=== PATIENT | female | born 1990 | race Caucasian/White ===

== ENCOUNTER → 2018-10-31 | Outpatient (CLI) | payer OTHER ==
--- NOTE | 2018-10-31 12:51 | XR ---
EXAMINATION TYPE: XR femur LT DATE OF EXAM: 10/31/2018 CLINICAL HISTORY: Pain TECHNIQUE: Two views of the left femur are obtained. COMPARISON: None FINDINGS: There is no acute fracture or dislocation seen in the left femur. The left hip and knee j oints appear within normal limits. The overlying soft tissue appears unremarkable. Calcification carlita ng the acetabulum can be associated with chronic acetabular labral tear. Small suprapatellar bursal f luid collection noted. IMPRESSION: There is no acute fracture or dislocation in the left femur. There is a small suprapatel lar bursal fluid collection.
--- NOTE | 2018-10-31 12:52 | XR ---
EXAMINATION TYPE: XR Hip LT and AP Pelvis DATE OF EXAM: 10/31/2018 COMPARISON: NONE HISTORY: Pain TECHNIQUE: A single AP view of the pelvis is obtained. Two views of the left hip are obtained. FINDINGS: There is no acute fracture/dislocation evident in the pelvis. The hip and sacroiliac join ts appear symmetric and unremarkable. The overlying soft tissue appears unremarkable. Two views of left hip show no acute fracture or dislocation. No focal lytic or sclerotic lesion seen in the proximal left femur. The overlying soft tissue is unremarkable. Calcification the pelvis li william is vascular. Tiny calcification along the lateral margin of the acetabulum can be associated wit h chronic acetabular labral tear. IMPRESSION: There is no acute fracture or dislocation in the pelvis or left hip.
== END | disposition home or self-care (01) ==
LOC: RADXRMAIN 12:21
PROVIDERS: ATTEND Emergency Medicine
DX: R93.7 Abnormal findings on diagnostic imaging of other parts of musculoskeletal system (principal); S70.02XA Contusion of left hip, initial encounter; S80.12XA Contusion of left lower leg, initial encounter
CPT/HCPCS: 73502